=== PATIENT | female | born 1975 | race Caucasian/White ===

== ENCOUNTER 2022-01-30 00:34 | Emergency (ER) | payer OTHER ==
[~2022-01-30] VITALS: Ht 172.7 cm; Wt 77.1 kg
--- NOTE | 2022-01-30 01:33 | NUR ---
BIBS C/O VOMITTING & NAUSEA [id number] .
[2022-01-30] MEDS ORDERED: ONDANSETRON HCL/PF 4 MG/2 ML VIAL ONE ×2 (01:58→03:05)
[2022-01-30] MEDS ORDERED: LIDOCAINE VISCOUS 2% UD 15 ML UDC MM ONE (02:00)
[2022-01-30] MEDS ORDERED: ONDANSETRON HCL/PF 4 MG/2 ML VIAL IVP ONE (02:00)
[2022-01-30] MEDS ORDERED: MAG HYDROX/AL HYDROX/SIMETH 30 ML UDC PO ONE (02:00)
[2022-01-30] MEDS ORDERED: IV NS 0.9% 1,000 ML BAG IV ONE (02:00)
--- NOTE | 2022-01-30 02:11 | NUR ---
IV LINE ESTABLISHED, [id number]
[2022-01-30] MEDS ORDERED: LIDOCAINE VISCOUS 2% UD 15 ML UDC ONE (02:32)
[2022-01-30] MEDS ORDERED: MAG HYDROX/AL HYDROX/SIMETH 30 ML UDC ONE (02:32)
[2022-01-30] MEDS ORDERED: ONDANSETRON HCL/PF 4 MG/2 ML VIAL IV ONE (03:30)
[2022-01-30] MEDS ORDERED: METOCLOPRAMIDE HCL 10 MG/2 ML VIAL ONE (03:42)
[2022-01-30] MEDS ORDERED: METOCLOPRAMIDE HCL 10 MG/2 ML VIAL IV ONE (04:00)
[2022-01-30] MEDS ORDERED: ONDA4TAB5 PO (04:27)
--- NOTE | 2022-01-30 04:34 | NUR ---
Patient discharged to home in stable condition. Written and verbal after care instructions given. Patient verbalizes understanding of instruction. IV removed. Catheter intact and site benign. Pressure and 4x4 applied to site. No bleeding noted. PT ambulatory with a steady gait
[2022-01-30 07:04] VITALS: BP 106/69
== END 2022-01-30 07:04 | disposition home or self-care (01) ==
LOC: ER 00:45
DX: R11.2 Nausea with vomiting, unspecified (principal); R10.13 Epigastric pain; Z60.2 Problems related to living alone; Z88.8 Allergy status to other drugs, medicaments and biological substances
CPT/HCPCS: 99284; 96374; 96361; 96375; 96376; J2765; J2405 ×2; J7030